=== PATIENT | female | born 1940 | race Hispanic/Latino ===

== ENCOUNTER → 2024-02-16 | Outpatient (REF) | payer MEDICARE ==
[~2024-02-16] MED LIST: IOPAMIDOL 370 MG/ML 100 ML INFUS..BTL INJ ONE
[2024-02-16 10:49] LABS: CREATININE, SERUM 0.69 mg/dL (0.57-1.11)
== END ==
LOC: MRI 09:55
PROVIDERS: ATTEND Family Medicine
DX: G45.9 Transient cerebral ischemic attack, unspecified (principal); R10.9 Unspecified abdominal pain; K59.00 Constipation, unspecified
CPT/HCPCS: 36415; 70551; 74177; 76700; 82565; 84520; Q9967

== ENCOUNTER → 2024-03-25 | Day surgery (SDC) | payer MEDICARE ==
[2024-03-24 15:35] LABS: BASOPHILS # (AUTO) 0.1 (0.0-0.1); BASOPHILS % 0.8 % (0.0-1.0); EOSINOPHILS # (AUTO) 0.2 (0.0-0.4); EOSINOPHILS % 3.1 % (0.0-6.0); HEMATOCRIT 41.4 % (34.2-44.1); LYMPHOCYTES # (AUTO) 2.5 (1.0-3.2); LYMPHOCYTES % 33.5 % (18.0-39.1); MEAN CORPUSCULAR HGB CONC 33.8 g/dL (31-35); MEAN CORPUSCULAR VOLUME 94.5 fL (81-99); MONOCYTES # (AUTO) 0.7 (0.2-0.8); MONOCYTES % 8.8 % (4.4-11.3); NEUTROPHILS # (AUTO) 3.9 (2.1-6.9); NEUTROPHILS % 53.5 % (38.7-80.0); PLATELET COUNT 246 x10e3/uL (140-360); RED BLOOD COUNT 4.38 x10e6/uL (3.6-5.1); RED CELL DISTRIBUTION WIDTH 13.2 % (11.7-14.4); WHITE BLOOD COUNT 7.37 x10e3/uL (4.8-10.8)
[~2024-03-25] MED LIST changes: +ATORVASTATIN CA20 MG PO; +DICYCLOMINE HCL20 MG PO; -IOPAMIDOL 370 MG/ML 100 ML INFUS..BTL INJ ONE; +LIDOCAINE HCL 2% LOCAL INJ 5 ML SDV VIAL INJ ONE; +LINZESS145 MCG PO; +PROPOFOL IV EMULSION 10 MG/ML 20 ML VIAL ONE; +VITAMIN D250 MCG PO; +ZOLPIDEM TARTRAT5 MG PO
[2024-03-25] MEDS: LACTATED RINGER'S 1,000 ML ONE (08:27)
[2024-03-25 10:30] VITALS: BP 130/78; PULSE 59; RESP 16; TEMP 97.1; O2SAT 99
== END | disposition home or self-care (01) ==
LOC: OR 06:57
PROVIDERS: ATTEND Internal Medicine Gastroenterology
DX: Z12.11 Encounter for screening for malignant neoplasm of colon (principal); K57.30 Diverticulosis of large intestine without perforation or abscess without bleeding; K64.8 Other hemorrhoids; K21.9 Gastro-esophageal reflux disease without esophagitis; Z71.3 Dietary counseling and surveillance; I10 Essential (primary) hypertension; E66.01 Morbid (severe) obesity due to excess calories; Z78.9 Other specified health status; Z88.6 Allergy status to analgesic agent; Z88.0 Allergy status to penicillin; Z01.810 Encounter for preprocedural cardiovascular examination; Z01.812 Encounter for preprocedural laboratory examination; Z79.899 Other long term (current) drug therapy; Z68.30 Body mass index [BMI] 30.0-30.9, adult
CPT/HCPCS: 36415; 85025; 93005; G0121; J2003; J2704; J7121; 45378